=== PATIENT | female | born 2000 | race Caucasian/White ===

== ENCOUNTER 2021-10-10 22:02 | Emergency (ER) | payer SELFPAY ==
[~2021-10-10] VITALS: Ht 167.6 cm; Wt 55.3 kg
[2021-10-10 22:24] VITALS: BP 122/85
--- NOTE | 2021-10-10 22:28 | NUR ---
PT TO LOBBY TO A/W EVALUATION
--- NOTE | 2021-10-10 22:56 | NUR ---
PT TAKEN TO RADIOLOGY
[2021-10-11] MEDS ORDERED: HYDROcodone/APAP 5/325 MG 1 TAB TAB PO ONE (00:05)
--- NOTE | 2021-10-11 00:12 | NUR ---
PT TAKEN TO ER BED 06
[2021-10-11] MEDS ORDERED: LIDOCAINE 2% 1000 MG/50 ML VIAL INJ ONE (00:15)
[2021-10-11] MEDS ORDERED: KETAMINE 10 MG/ML UD SYR **ER IVP ONE (00:15)
--- NOTE | 2021-10-11 00:32 | NUR ---
ER MD AT BEDSIDE FOR PROCEDURE CONSENT. PATIENT TO HAVE CONSCIOUS SEDATION FOR CLOSED REDUCTION OF THE RIGHT WRIST. PATIENT COAX4 CONFIRMS PROCEDURE. RT AT BEDSIDE PREPPING FOR SEDATION
--- NOTE | 2021-10-11 00:46 | NUR ---
TIMEOUT 0039 60MG KETAMINE 0040 REDUCTION 0043 SUGARTONG SPLINT APPLIED 0044 PENDING XRAY CONFIRM. INITIAL VITALS 112/85 38 ETCO2 20 RR 108 HR 100% SPO2
--- NOTE | 2021-10-11 00:49 | NUR ---
X-Ray at bedside.
--- NOTE | 2021-10-11 00:54 | NUR ---
XRAY CONFIRM PLACEMENT AT BEDSIDE WITH SALLIE GARCIA
[2021-10-11] MEDS ORDERED: IBUP-2213 PO (00:58)
--- NOTE | 2021-10-11 02:12 | NUR ---
CLEARED FOR DISHCARGE AT THIS TIME. ADVISED TO FOLLOW UP WITH PCP AND RETURN IF CONDITION WORSENS. RX SENT WITH PATIENT AND RADIOLOGY DISCS SENT. NO OTHER COMPLAINTS OR CONECRNS FOLLWING DISHCARGE TEACHING.
[2021-10-11 02:13] VITALS: BP 109/66
== END 2021-10-11 02:12 | disposition home or self-care (01) ==
LOC: MED 22:02
DX: S52.591A Other fractures of lower end of right radius, initial encounter for closed fracture (principal); Z79.899 Other long term (current) drug therapy; V00.121A Fall from non-in-line roller-skates, initial encounter; Y93.89 Activity, other specified; Y92.89 Other specified places as the place of occurrence of the external cause; Y99.8 Other external cause status
CPT/HCPCS: 25605; 73100; 73110; 99152; 99285; Q0092; J2001